=== PATIENT | female | born 1965 | race Caucasian/White ===

== ENCOUNTER 2019-12-12 09:29 | Outpatient (CLI) | payer OTHER ==
--- NOTE | 2019-12-12 13:23 | MRI Report ---
PROCEDURE: Lower Leg (Tib-Fib) RT W/O INDICATIONS: RIGHT LOWER LEG PX TECHNIQUE: Noncontrast coronal and sagittal T1 spin echo and STIR; axial T1 spin echo and T2 fast spin echo with fat saturation through the right lower leg. COMPARISON: None. FINDINGS: Image quality: Excellent. Bones: Surface skin marker is seen placed over anterior medial aspect of proximal lower leg. The vis ualized bone marrow demonstrates normal signal on all sequences. The overlying cortex appears intact . No fractures lines or intra-osseous lesions. Soft tissues: There is asymmetric soft tissue edema and mild swelling in anterior lower leg at the l evel of the surface marker. No discrete soft tissue mass or drainable fluid collection is seen. The s canned muscles demonstrate normal overall bulk and internal signal. Subcutaneous tissues appear norm al as well. IMPRESSION: 1. Finding is most consistent with soft tissue contusion along anterior and slightly medial aspect of proximal to mid right lower leg. No discrete drainable fluid collection or soft tissue mass is seen. 2. No fracture or dislocation. No evidence of dailey splint. 3. No lower leg muscle signal abnormality. Reviewed by: Santino Garcia MD on 12/12/2019 1:22 PM PDT Approved by: Santino Garcia MD on 12/12/2019 1:22 PM PDT Station ID: [id number]
== END 2019-12-12 09:30 | disposition home or self-care (01) ==
LOC: DI 09:29
PROVIDERS: ATTEND Family Medicine
DX: M79.661 Pain in right lower leg (principal)